=== PATIENT | female | born 1940 | race Caucasian/White ===

== ENCOUNTER 2020-08-04 14:10 | Inpatient (IN) | payer OTHER ==
[2020-08-04 15:06] LABS: EOS % 1.3 % (0-4.5); HEMATOCRIT 37.1 % (32.4-45.2); HEMOGLOBIN 12.1 GM/dl (10.7-15.3); LYMPH % 23.9 % (8-40); MCH 29.1 pg (25.7-33.7); MCHC 32.8 g/dl (32.0-36.0); MEAN CELL VOLUME 88.9 fl (80-96); MEAN PLT VOLUME 8.9 fl (7.5-11.1); MONO % 13.2 % (3.8-10.2); NEUT % 59.6 % (42.8-82.8); PLATELET COUNT 234 K/MM3 (134-434); RBC 4.17 M/mm3 (3.60-5.2); RDW 13.8 % (11.6-15.6); WHITE BLOOD COUNT 5.9 K/mm3 (4.0-10.8)
[2020-08-04 15:15] LABS: ALK PHOS 64 U/L (45-117); ANION GAP 8 MMOL/L (8-16); BILIRUBIN,TOTAL 0.5 mg/dl (0.2-1); CALCIUM 8.9 mg/dl (8.5-10); CHLORIDE 99 mmol/L (98-107); CO2 25 mmol/L (21-32); CREATININE 0.7 mg/dl (0.55-1.3); GLUCOSE,RANDOM 110 mg/dl (74-106); SGOT/AST 28 U/L (15-37); SGPT/ALT 23 U/L (13-61); SODIUM 132 mmol/L (136-145); TOT PROT 6.3 g/dl (6.4-8.2)
[2020-08-04 16:24] LABS: CREATININE, URINE RANDOM 36.4 mg/dL
[2020-08-04] MEDS ORDERED: HEPARIN INFUSION - 25,000 UNITS/500 ML INFUS.BAG IVPB SCH (17:30)
[2020-08-04] MEDS ORDERED: HEPARIN INFUSION - 25,000 UNITS/500 ML INFUS.BAG IVPB ONE (18:02)
[2020-08-04] MEDS ORDERED: LOSARTAN POTASSIUM 25 MG TABLET PO ONE (21:43)
[2020-08-04] MEDS: amLODIPine BESYLATE 5 MG TABLET (FP) PO SCH (21:58)
[2020-08-04 22:19] VITALS: BMI 28.0
[2020-08-05 07:56] LABS: BASO % 1.5 % (0-2.0); HEMATOCRIT 38.8 % (32.4-45.2); HEMOGLOBIN 12.4 GM/dl (10.7-15.3); LYMPH % 33.4 % (8-40); MCH 28.4 pg (25.7-33.7); MCHC 31.9 g/dl (32.0-36.0); MEAN CELL VOLUME 89.1 fl (80-96); MEAN PLT VOLUME 9.4 fl (7.5-11.1); MONO % 16.2 % (3.8-10.2); NEUT % 46.9 % (42.8-82.8); PLATELET COUNT 224 K/MM3 (134-434); RBC 4.35 M/mm3 (3.60-5.2); RDW 13.7 % (11.6-15.6); WHITE BLOOD COUNT 4.3 K/mm3 (4.0-10.8)
[2020-08-05 08:07] LABS: ALBUMIN 3.7 g/dl (3.4-5.0); BILIRUBIN,TOTAL 0.6 mg/dl (0.2-1); CALCIUM 8.7 mg/dl (8.5-10); CREATININE 0.8 mg/dl (0.55-1.3); MAGNESIUM 1.8 mg/dL (1.8-2.4)
[2020-08-05 08:10] LABS: CHOLESTEROL 155 mg/dl (50-200); HDL CHOLESTEROL 54 mg/dl (40-60); TRIGLYCERIDES 57 mg/dl (0-150)
[2020-08-05 08:13] LABS: LDL CHOLESTEROL (ONLY SJRH) 89 mg/dL (5-100)
[2020-08-05] MEDS ORDERED: LOSARTAN POTASSIUM 25 MG TABLET PO SCH (10:00)
[2020-08-05] MEDS ORDERED: LOSARTAN POTASSIUM 25 MG TABLET PO ONE (10:45)
[2020-08-05] MEDS: APIXABAN 5 MG TABLET PO SCH ×2 (11:06→21:16)
[2020-08-05] MEDS: amLODIPine BESYLATE 5 MG TABLET (FP) PO SCH (21:16)
[2020-08-05] MEDS ORDERED: TEMAZEPAM 15 MG CAPSULE PO SCH (22:00)
[2020-08-06 09:34] VITALS: BP 130/62; PULSE 59; TEMP 97.7
[2020-08-06] MEDS: APIXABAN 5 MG TABLET PO SCH (09:35)
[2020-08-06] MEDS ORDERED: LOSARTAN POTASSIUM 50 MG TABLET PO SCH (10:00)
== END 2020-08-06 10:30 | disposition home or self-care (01) | DRG 310 ==
LOC: FER 14:10 → FM/S 17:04
PROVIDERS: ADMIT Internal Medicine; ATTEND Internal Medicine
DX: I48.91 Unspecified atrial fibrillation (principal); R00.1 Bradycardia, unspecified; I10 Essential (primary) hypertension; E78.00 Pure hypercholesterolemia, unspecified; E03.9 Hypothyroidism, unspecified; R07.9 Chest pain, unspecified
CPT/HCPCS: 36415; 70450-TC; 71045-TC-FY; 80053; 80061; 81003; 82550; 82570; 83036; 83721; 83735; 84156; 84300; 84436; 84484; 85025; 85730; 93005; 93306-TC; 99285-25; C9803; J1644; U0003; U0005

== ENCOUNTER 2020-09-01 04:43 | Day surgery (SDC) | payer OTHER ==
[2020-08-28 13:10] VITALS: BMI 27.1
[2020-09-01] MEDS ORDERED: LIDOCAINE VISCOUS 2% ORAL/TOP 20 ML UNIT-DOSE CUP ONE (14:15)
[2020-09-01] MEDS ORDERED: LIDOCAINE VISCOUS 2% ORAL/TOP 20 ML UNIT-DOSE CUP MM ONE (14:31)
[2020-09-01 15:04] VITALS: TEMP 97.1
[2020-09-01 16:22] VITALS: BP 153/60; PULSE 55
== END 2020-09-01 16:19 | disposition home or self-care (01) ==
LOC: JASU-ENDO 04:43
PROVIDERS: ATTEND Internal Medicine Cardiovascular Disease
PROC: 5A2204Z Restoration of Cardiac Rhythm, Single (ICD-10-PCS; 2020-09-01)
PROC: B246ZZ4 Ultrasonography of Right and Left Heart, Transesophageal (ICD-10-PCS; principal; 2020-09-01 14:00)
DX: I48.91 Unspecified atrial fibrillation (principal)
CPT/HCPCS: 92960; 93005; 93010; 93312; 93325

== ENCOUNTER 2024-06-12 09:49 | Inpatient (IN) | payer OTHER ==
[2024-06-12 13:20] LABS: ABSOLUTE IMMATURE GRANULOCYTES 0.02 x10^3/uL (0.0-0.031); BASOPHILS # 0.02 x10^3/uL (0.01-0.08); EOSINOPHIL % 0.1 % (0.7-5.8); EOSINOPHILS # 0.01 x10^3/uL (0.04-0.36); HEMATOCRIT 33.1 % (34.1-44.9); HEMOGLOBIN 11.2 g/dL (11.2-15.7); MCHC 33.8 g/dl (32.2-35.5); MEAN CELL VOLUME 89.7 fl (79.4-94.8); MEAN PLT VOLUME 10.1 fl (9.4-12.3); MONOCYTE # 0.84 x10^3/uL (0.24-0.86); MONOCYTE % 11.6 % (4.7-12.5); PLATELET COUNT # 190 x10^3/uL (182-369); RDW 13.5 % (12.5-17.0)
[2024-06-12 13:45] LABS: ALBUMIN 4.1 g/dl (3.4-5.0); BILIRUBIN,TOTAL 0.7 mg/dl (0.2-1); CALCIUM 9.1 mg/dl (8.5-10.1); CREATININE 0.5 mg/dl (0.6-1.3); POTASSIUM 3.6 mmol/L (3.5-5.1)
[2024-06-12 14:18] LABS: INR 1.31 (0.83-1.09); PROTHROMBIN TIME (PATIENT) 14.8 SEC (9.7-13.0)
[2024-06-13 00:45] VITALS: BMI 23.4
[2024-06-13] MEDS: MELATONIN 5 MG TABLETS PO PRN (02:21)
[2024-06-13 04:10] LABS: URINE APPEARANCE CLOUDY; URINE BILIRUBIN NEGATIVE (NEGATIVE); URINE COLOR YELLOW; URINE GLUCOSE (UA) NEGATIVE (NEGATIVE); URINE KETONE NEGATIVE (NEGATIVE); URINE LEUK ESTERASE NEGATIVE (NEGATIVE); URINE NITRITE NEGATIVE (NEGATIVE); URINE PROTEIN NEGATIVE (NEGATIVE)
[2024-06-13] MEDS: LEVOTHYROXINE NA 75 MCG TABLET (FP) PO SCH (06:37)
[2024-06-13 08:29] LABS: ALBUMIN 3.7 g/dl (3.4-5.0); BILIRUBIN,TOTAL 0.8 mg/dl (0.2-1); CALCIUM 8.7 mg/dl (8.5-10.1); CREATININE 0.6 mg/dl (0.6-1.3); MAGNESIUM 1.7 mg/dL (1.8-2.4); PHOSPHOROUS 3.4 (2.5-4.9); POTASSIUM 3.6 mmol/L (3.5-5.1); TOT PROT 5.3 g/dl (6.4-8.2)
[2024-06-13 08:34] LABS: HEMATOCRIT 34.3 % (34.1-44.9); HEMOGLOBIN 11.6 g/dL (11.2-15.7); MCHC 33.8 g/dl (32.2-35.5); MEAN CELL VOLUME 90.3 fl (79.4-94.8); PLATELET COUNT # 196 x10^3/uL (182-369); RDW 13.6 % (12.5-17.0)
[2024-06-13] MEDS: MAGNESIUM OXIDE 400 MG TABLET (FP) PO ONE (09:59)
[2024-06-13] MEDS: LOSARTAN POTASSIUM 50 MG TABLET PO SCH (09:59)
[2024-06-13] MEDS: APIXABAN 5 MG TABLET PO SCH (09:59)
[2024-06-13] MEDS: ACETAMINOPHEN 1000 MG/100 ML BAG IVPB PRN (21:09)
[2024-06-13] MEDS: amLODIPine BESYLATE 5 MG TABLET (FP) PO SCH (21:09)
[2024-06-14 06:11] VITALS: TEMP 97.5
[2024-06-14] MEDS ORDERED: ACETAMINOPHEN 325 MG TABLET (FP) PO PRN (07:12)
[2024-06-14 07:45] LABS: HEMATOCRIT 35.7 % (34.1-44.9); MCHC 33.6 g/dl (32.2-35.5); MEAN CELL VOLUME 90.4 fl (79.4-94.8); MEAN PLT VOLUME 10.4 fl (9.4-12.3); PLATELET COUNT # 192 x10^3/uL (182-369); RDW 13.9 % (12.5-17.0)
[2024-06-14 07:57] LABS: CALCIUM 8.4 mg/dl (8.5-10.1); CREATININE 0.6 mg/dl (0.6-1.3); POTASSIUM 3.9 mmol/L (3.5-5.1)
[2024-06-14] MEDS: NAPROXEN 250 MG TABLET PO SCH (09:40)
[2024-06-14 11:44] VITALS: BP 171/93; PULSE 41; RESP 18
== END 2024-06-14 13:11 | DRG 561 ==
LOC: FER 09:49 → FM/S 16:05 → INTOOBSV 16:05 → FM/S 06-13 05:23 → OBSVTOIN 06-13 07:13
PROVIDERS: ADMIT Internal Medicine; ATTEND Internal Medicine
DX: M97.01XA Periprosthetic fracture around internal prosthetic right hip joint, initial encounter (principal); I10 Essential (primary) hypertension; E78.5 Hyperlipidemia, unspecified; M25.551 Pain in right hip; W19.XXXA Unspecified fall, initial encounter; Y93.9 Activity, unspecified; Y92.89 Other specified places as the place of occurrence of the external cause; Y99.9 Unspecified external cause status
CPT/HCPCS: 36415; 72192-TC; 73552-TC-RT-FY; 80048; 80053; 81003; 83735; 84100; 85025; 85027; 85610; 86850; 86900; 86901; 87635; 93005; 97116-GP; 97162-GP; 99285-25; G0378; J0131